=== PATIENT | female | born 1965 | race American Indian/Alaskan Native ===

== ENCOUNTER 2017-10-12 13:21 | Outpatient (CLI) | payer OTHER ==
[2017-10-12] MEDS ORDERED: PROVENTIL IH ONE (14:29)
== END 2017-10-12 13:22 | disposition home or self-care (01) ==
LOC: PF 13:21
PROVIDERS: ATTEND Internal Medicine
DX: J44.9 Chronic obstructive pulmonary disease, unspecified (principal); J45.909 Unspecified asthma, uncomplicated
CPT/HCPCS: 94060; 94640

== ENCOUNTER 2017-10-12 14:57 | Emergency (ER) | payer OTHER ==
[2017-10-12] MEDS ORDERED: DUONEB *Not for PRN Use IH ONE (17:42)
[2017-10-12] MEDS ORDERED: PROVENTIL IH ONE (17:42)
--- NOTE | 2017-10-12 18:08 | XRay Report ---
FINAL REPORT EXAM: XR CHEST ROUTINE 2V HISTORY: Shortness of breath TECHNIQUE: Frontal and lateral chest x-ray. PRIORS: None. FINDINGS: Cardiac and mediastinal silhouette within normal limits. Lungs are normally expanded, without significant vascular congestion. No focal consolidation, pleural effusion or apparent pneumothorax. Bony thorax grossly unremarkable. IMPRESSION: 1. No acute findings.
[2017-10-12 20:20] LABS: Basophils # (Auto) 0.1 K/mm3 (0.0-0.1); Basophils % (Auto) 0.9 % (0.0-1.8); Eosinophils # (Auto) 0.5 K/mm3 (0.0-0.4); Eosinophils % (Auto) 5.9 % (0.0-4.3); Hematocrit 38.5 % (30.3-42.9); Hemoglobin 12.7 gm/dl (10.1-14.3); Lymphocytes # (Auto) 2.5 K/mm3 (1.2-5.4); Lymphocytes % (Auto) 28.4 % (13.4-35.0); Mean Corpuscular HGB Conc 33 % (30-34); Mean Corpuscular Hemoglobin 28 pg (28-32); Mean Corpuscular Volume 85 fl (79-97); Monocytes # (Auto) 0.9 K/mm3 (0.0-0.8); Monocytes % (Auto) 9.8 % (0.0-7.3); Platelet Count 216 K/mm3 (140-440); Red Blood Count 4.52 M/mm3 (3.65-5.03); Red Cell Distribution Width 14.8 % (13.2-15.2)
[2017-10-12 20:32] LABS: BUN/Creatinine Ratio 27; Blood Urea Nitrogen 19 mg/dL (7-17); Calcium 8.9 mg/dL (8.4-10.2); Hemolysis Index 7
[2017-10-13] MEDS ORDERED: ATROVENT IH ONE (00:06)
[2017-10-13] MEDS ORDERED: DELTASONE PO ONE (00:06)
[2017-10-13] MEDS ORDERED: TYLENOL PO ONE (00:06)
[2017-10-13] MEDS ORDERED: MOTRIN PO ONE (00:06)
[2017-10-13] MEDS ORDERED: PROVENTIL IH ONE (00:06)
--- NOTE | 2017-10-13 00:07 | Emergency Department Report ---
ED Asthma HPI - General Chief Complaint: Adult Asthma Stated Complaint: WHEEZING Time Seen by Provider: 10/12/17 23:58 Source: patient, RN notes reviewed, old records reviewed Mode of arrival: Ambulatory Limitations: No Limitations - History of Present Illness Initial Comments: This is a 52-year-old female who was previously on known to this provider, her tobacco curer is Dr. Ling valerio, has a past medical history of asthma with 8 hospitalizations, intubated 2, presents to the ER today after outpatient pulmonary function tests incited an asthma attack. Patient reports that she was fine and feeling like she was in her usual state of health when she developed chest tightness and burning, bilateral "lung pain", cough, wheezing. The symptoms improved with albuterol and Atrovent. Patient reports that she was feeling fine up until her pulmonary function testing. There is no leg pain or leg swelling, no recent trips or surgeries, the patient denies cocaine use, aspirin use, pulmonary embolus or DVT risk factors. Her chest burning started at least 9-10 hours prior to my arrival and history/physical. MD Complaint: "asthma attack", shortness of breath, wheezing -: Gradual Severity: moderate Context: other - Related Data Previous Rx's Medication Instructions Recorded Last Taken Type ALBUTEROL Inhaler [ProAir HFA 2 puff IH QID PRN #2 unit 02/29/16 Unknown Rx Inhaler] ALBUTEROL NEB's [Proventil 0.083% 2.5 mg IH TID PRN #10 ampul 02/29/16 Unknown Rx NEBS] Azithromycin [Zithromax Z-VÍCTOR] 1 dose PO DAILY #1 pack 02/29/16 Unknown Rx Budesoni/Formotero 160-4.5(Nf) 2 puff IH BID #1 unit 02/29/16 Unknown Rx [Symbicort 160-4.5 (Nf)] Loratadine [Claritin] 10 mg PO DAILY #15 tablet 02/29/16 Unknown Rx Pantoprazole [Protonix TAB] 40 mg PO QDAY #30 tablet 02/29/16 Unknown Rx Prednisone [predniSONE 10 mg 10 mg PO .TAPER #1 tab.ds.pk 02/29/16 Unknown Rx (6-Day Pack, 21 Tabs)] guaiFENesin ER [Mucinex ER] 600 mg PO BID PRN #30 tablet 02/29/16 Unknown Rx oxyCODONE /ACETAMINOPHEN [Percocet 1 tab PO Q6HR PRN #20 tablet 02/29/16 Unknown Rx 5/325 mg] Acetaminophen [Tylenol Arthritis] 650 mg PO Q6HR PRN #30 tablet.er 10/13/17 Unknown Rx Albuterol Sulfate [Proair 90 mcg IH Q4HR PRN #2 aer.pow.ba 10/13/17 Unknown Rx Respiclick] Ipratropium [place] [Atrovent Hfa] 12.9 gm IH Q4HR #2 hfa.aer.ad 10/13/17 Unknown Rx predniSONE [Deltasone] 40 mg PO QDAY #8 tab 10/13/17 Unknown Rx Allergies Allergy/AdvReac Type Severity Reaction Status Date / Time No Known Allergies Allergy Verified 10/31/13 22:53 ED Review of Systems ROS: Stated complaint: WHEEZING Other details as noted in HPI Constitutional: denies: fever Eyes: denies: eye discharge ENT: denies: epistaxis Respiratory: shortness of breath, wheezing Cardiovascular: denies: syncope Genitourinary: denies: dysuria Musculoskeletal: as per HPI Skin: as per HPI Neurological: as per HPI Psychiatric: as per HPI Hematological/Lymphatic: as per HPI ED Past Medical Hx - Past Medical History Previous Medical History?: Yes Hx Congestive Heart Failure: No Hx Diabetes: No Hx Arthritis: Yes Hx Asthma: Yes Hx COPD: No Additional medical history: PNEUMONIA 2X - Surgical History Past Surgical History?: Yes Additional Surgical History: csection x 3 - Social History Smoking Status: Never Smoker Substance Use Type: Prescribed - Medications Home Medications: Home Medications Medication Instructions Recorded Confirmed Last Taken Type ALBUTEROL Inhaler [ProAir HFA 2 puff IH QID PRN #2 unit 02/29/16 Unknown Rx Inhaler] ALBUTEROL NEB's [Proventil 0.083% 2.5 mg IH TID PRN #10 ampul 02/29/16 Unknown Rx NEBS] Azithromycin [Zithromax Z-VÍCTOR] 1 dose PO DAILY #1 pack 02/29/16 Unknown Rx Budesoni/Formotero 160-4.5(Nf) 2 puff IH BID #1 unit 02/29/16 Unknown Rx [Symbicort 160-4.5 (Nf)] Loratadine [Claritin] 10 mg PO DAILY #15 tablet 02/29/16 Unknown Rx Pantoprazole [Protonix TAB] 40 mg PO QDAY #30 tablet 02/29/16 Unknown Rx Prednisone [predniSONE 10 mg 10 mg PO .TAPER #1 tab.ds.pk 02/29/16 Unknown Rx (6-Day Pack, 21 Tabs)] guaiFENesin ER [Mucinex ER] 600 mg PO BID PRN #30 tablet 02/29/16 Unknown Rx oxyCODONE /ACETAMINOPHEN [Percocet 1 tab PO Q6HR PRN #20 tablet 02/29/16 Unknown Rx 5/325 mg] Acetaminophen [Tylenol Arthritis] 650 mg PO Q6HR PRN #30 tablet.er 10/13/17 Unknown Rx Albuterol Sulfate [Proair 90 mcg IH Q4HR PRN #2 aer.pow.ba 10/13/17 Unknown Rx Respiclick] Ipratropium [place] [Atrovent Hfa] 12.9 gm IH Q4HR #2 hfa.aer.ad 10/13/17 Unknown Rx predniSONE [Deltasone] 40 mg PO QDAY #8 tab 10/13/17 Unknown Rx ED Physical Exam - General Limitations: No Limitations General appearance: alert, in no apparent distress - Head Head exam: Present: atraumatic, normocephalic - Eye Eye exam: Present: normal appearance, EOMI. Absent: nystagmus - ENT ENT exam: Present: normal exam, normal orophraynx, mucous membranes moist - Neck Neck exam: Present: normal inspection, full ROM - Respiratory Respiratory exam: Present: wheezes, chest wall tenderness. Absent: respiratory distress - Cardiovascular Cardiovascular Exam: Present: regular rate, normal rhythm, normal heart sounds. Absent: bradycardia, tachycardia, irregular rhythm, systolic murmur, diastolic murmur, rubs, gallop - GI/Abdominal GI/Abdominal exam: Present: soft, normal bowel sounds. Absent: distended, tenderness, guarding, rebound, rigid, pulsatile mass - Extremities Exam Extremities exam: Present: normal inspection, full ROM, normal capillary refill. Absent: pedal edema, joint swelling, calf tenderness - Back Exam Back exam: Present: normal inspection, full ROM. Absent: tenderness, CVA tenderness (R), paraspinal tenderness, vertebral tenderness - Neurological Exam Neurological exam: Present: alert, oriented X3, CN II-XII intact, normal gait, other (Extraocular movements intact. Tongue midline. No facial droop. Facial sensation intact to light touch in the V1, V2, V3 distribution bilaterally. 5 and 5 strength in 4 extremities.. Sensation is intact to light touch in 4 extremities.). Absent: motor sensory deficit - Psychiatric Psychiatric exam: Present: normal affect, normal mood - Skin Skin exam: Present: warm, dry, intact, normal color. Absent: rash ED Course Vital Signs 10/12/17 10/12/17 10/13/17 15:11 23:55 00:51 Temperature 97.5 F L 98.7 F Pulse Rate 97 H 91 H Pulse Rate [ 64 Bilateral] Respiratory 30 H 20 Rate Respiratory 20 Rate [Bilateral ] Blood Pressure 130/90 Blood Pressure 148/82 [Left] O2 Sat by Pulse 94 100 Oximetry 10/13/17 10/13/17 01:18 01:53 Temperature 97.7 F Pulse Rate 76 Pulse Rate [ 79 Bilateral] Respiratory 18 Rate Respiratory 20 Rate [Bilateral ] Blood Pressure Blood Pressure 135/79 [Left] O2 Sat by Pulse 99 Oximetry ED Medical Decision Making - Lab Data Result diagrams: 10/12/17 Unknown 10/12/17 15:15 Vital Signs 10/12/17 10/12/17 10/13/17 15:11 23:55 00:51 Temperature 97.5 F L 98.7 F Pulse Rate 97 H 91 H Pulse Rate [ 64 Bilateral] Respiratory 30 H 20 Rate Respiratory 20 Rate [Bilateral ] Blood Pressure 130/90 Blood Pressure 148/82 [Left] O2 Sat by Pulse 94 100 Oximetry 10/13/17 01:18 Temperature Pulse Rate Pulse Rate [ 79 Bilateral] Respiratory Rate Respiratory 20 Rate [Bilateral ] Blood Pressure Blood Pressure [Left] O2 Sat by Pulse Oximetry Labs 10/12/17 10/12/17 10/13/17 15:15 Unknown 00:42 WBC 8.8 RBC 4.52 Hgb 12.7 Hct 38.5 MCV 85 MCH 28 MCHC 33 RDW 14.8 Plt Count 216 Lymph % (Auto) 28.4 Mora % (Auto) 9.8 H Eos % (Auto) 5.9 H Baso % (Auto) 0.9 Lymph # 2.5 Mora # 0.9 H Eos # 0.5 H Baso # 0.1 Seg Neutrophils % 55.0 Seg Neutrophils # 4.8 Sodium 143 Potassium 3.7 Chloride 103.5 Carbon Dioxide 28 Anion Gap 15 BUN 19 H Creatinine 0.7 Estimated GFR > 60 BUN/Creatinine Ratio 27 Glucose 87 Calcium 8.9 Troponin T < 0.010 - EKG Data 10/13/17 01:35 EKG #1 demonstrates normal sinus, 79 bpm, normal axis, normal intervals, not morphologically consistent with ST elevation myocardial infarction, EKG #2 is unchanged and unremarkable, also not consistent with ST elevation myocardial infarction - Radiology Data Radiology results: report reviewed, image reviewed X-ray of the chest, interpreted by myself and radiology: No acute disease - Medical Decision Making Differential diagnosis, including but not limited to: Asthma exacerbation, costochondritis, pneumonia, pericarditis, myocarditis, acute coronary syndrome Assessment and plan: 52-year-old female with wheezing, reproducible chest wall tenderness, all of her symptoms started after getting pulmonary function testing. She is afebrile with reassuring vital signs and saturating well, she has no pulmonary embolus or DVT risk factors and she is low risk by well's criteria. I evaluated her more than 8 hours after her chest discomfort started , troponin was negative 1, and EKG was morphologically unremarkable 2. As for the [employer] clinical policy, myocardial infarction may be excluded with one set of troponin/cardiac enzymes if symptoms have present for greater than 8 hours. Patient treated aggressively with albuterol, Atrovent, steroids, and ibuprofen, her pain improved, her wheezing improved, and she was able to walk without desaturation. She she will follow up with outpatient primary care doctor tobacco curer at this time, and she will be discharged. Critical care attestation.: If time is entered above; I have spent that time in minutes in the direct care of this critically ill patient, excluding procedure time. ED Disposition Clinical Impression: Asthma exacerbation Disposition: DC-01 TO HOME OR SELFCARE Is pt being admited?: No Does the pt Need Aspirin: No Condition: Stable Instructions: Asthma (ED) Additional Instructions: Take medications as directed. Follow up with a primary care doctor within the next 7-10 days. Follow up with a rigging engineer for your chest tightness within the next 3-5 days. Return to the ER right away with new pain, worse pain, migration of pain, fevers, chills, lethargy, irritability, projectile vomiting, change in mental status, confusion, inability to tolerate liquid feeds. Prescriptions: Acetaminophen [Tylenol Arthritis] 650 mg PO Q6HR PRN #30 tablet.er PRN Reason: Pain Albuterol Sulfate [Proair Respiclick] 90 mcg IH Q4HR PRN #2 aer.pow.ba PRN Reason: Wheezing Ipratropium [place] [Atrovent Hfa] 12.9 gm IH Q4HR #2 hfa.aer.ad predniSONE [Deltasone] 40 mg PO QDAY #8 tab Referrals: STANLEY TOM MD [Primary Care Provider] - 3-5 Days LING VALERIO MD [Referring] - 3-5 Days [facility] [Provider Group] - 3-5 Days [facility] [Provider Group] - 3-5 Days [facility] [Provider Group] - 3-5 Days Forms: Work/School Release Form(ED)
[2017-10-13 01:54] VITALS: BP 135/79
== END 2017-10-13 01:55 | disposition home or self-care (01) ==
LOC: ED 14:57
DX: J45.901 Unspecified asthma with (acute) exacerbation (principal); M19.90 Unspecified osteoarthritis, unspecified site
CPT/HCPCS: 36415; 71046; 80048; 84484; 85025; 93005; 93010; 94644; 99284; J7512

== ENCOUNTER → 2017-12-16 | Outpatient (CLI) | payer MEDICAID | LOC: SLR 11:00 | PROVIDERS: ATTEND Otolaryngology | DX: G47.30 Sleep apnea, unspecified (principal) | CPT/HCPCS: 95810 ==

== ENCOUNTER → 2018-01-25 | Outpatient (CLI) | payer MEDICAID | LOC: SLR 11:00 | PROVIDERS: ATTEND Otolaryngology | DX: G47.33 Obstructive sleep apnea (adult) (pediatric) (principal) | CPT/HCPCS: 95811 ==

== ENCOUNTER 2018-10-13 16:10 | Emergency (ER) | payer MEDICAID, OTHER ==
[2018-10-13] MEDS ORDERED: DECADRON IM ONE (16:25)
[2018-10-13] MEDS ORDERED: ATROVENT IH ONE (16:25)
[2018-10-13] MEDS ORDERED: PROVENTIL IH ONE (16:25)
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
--- NOTE | 2018-10-13 20:37 | XRay Report ---
FINAL REPORT EXAM: XR CHEST ROUTINE 2V HISTORY: wheezing bx tx need to check @1740 TECHNIQUE: Two view chest PA and lateral PRIORS: Comparison is October 12, 2017 FINDINGS: Cardiac and mediastinal contours are unremarkable. No focal pulmonary infiltrate is identified. No pleural fluid collection seen. Pulmonary vasculature is unremarkable. IMPRESSION: Negative two-view chest
[2018-10-13 21:15] VITALS: BP 140/71
== END 2018-10-13 21:15 | disposition home or self-care (01) ==
LOC: ED 16:10
DX: J45.21 Mild intermittent asthma with (acute) exacerbation (principal); M19.90 Unspecified osteoarthritis, unspecified site
CPT/HCPCS: 71046; 94640; 96372; 99283; J1100

== ENCOUNTER 2020-04-11 19:36 | Emergency (ER) | payer MEDICAID, MEDICARE, OTHER ==
[2020-04-11 19:58] VITALS: BP 147/95
--- NOTE | 2020-04-11 21:01 | Event Note ---
ED Screening Note Date of service: 04/11/20 Time: 20:57 ED Screening Note: This is a 55-year-old female presents the ED complaining headache, neck pain, back pain with general pain Midline tenderness, EMS applied collar This initial assessment/diagnostic orders/clinical plan/treatment(s) is/are subject to change based on patients health status, clinical progression and re- assessment by fellow clinical providers in the ED. Further treatment and workup at subsequent clinical providers discretion. Patient/guardian urged not to elope from the ED as their condition may be serious if not clinically assessed and managed. Initial orders include: xr cervical pain control
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
[2020-04-11] MEDS ORDERED: IPRATROPIUM/ALBUTEROL SULFATE 3 ML AMPUL.NEB IH ONE (23:11)
[2020-04-11] MEDS ORDERED: oxyCODONE /ACETAMINOPHEN 5-325MG TAB PO ONE (23:11)
[2020-04-11] MEDS ORDERED: predniSONE 20 MG TAB PO ONE (23:11)
[2020-04-11] MEDS ORDERED: IBUPROFEN 600 MG TAB PO ONE (23:11)
[2020-04-11] MEDS ORDERED: ONDANSETRON 4 MG ODT TAB PO ONE (23:11)
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
== END 2020-04-12 02:00 | disposition home or self-care (01) ==
LOC: ED 19:36
DX: M62.830 Muscle spasm of back (principal); M62.838 Other muscle spasm; J45.901 Unspecified asthma with (acute) exacerbation; J32.8 Other chronic sinusitis; M13.88 Other specified arthritis, other site; J44.9 Chronic obstructive pulmonary disease, unspecified; Z79.899 Other long term (current) drug therapy; Z98.890 Other specified postprocedural states
CPT/HCPCS: 70450; 72040; 72125; 72131; 94640; 99284; J7512; 94644; Q0162